=== PATIENT | female | born 1960 | race African-American/Black ===

== ENCOUNTER → 2017-01-26 | Outpatient (CLI) | payer OTHER | LOC: FIMAGING 15:59 | DX: Z12.31 Encounter for screening mammogram for malignant neoplasm of breast (principal) | CPT/HCPCS: G0202 ==

== ENCOUNTER → 2017-02-04 | Outpatient (CLI) | payer OTHER | LOC: FIMAGING 13:30 | PROVIDERS: ATTEND Family Medicine | DX: Z12.39 Encounter for other screening for malignant neoplasm of breast (principal); N63 Unspecified lump in breast ==

== ENCOUNTER → 2017-11-04 | Outpatient (CLI) | payer OTHER | LOC: FIMAGING 13:43 | PROVIDERS: ATTEND Obstetrics & Gynecology Gynecology | DX: R92.8 Other abnormal and inconclusive findings on diagnostic imaging of breast (principal) | CPT/HCPCS: G0206 ==

== ENCOUNTER 2018-01-28 11:54 | Observation (INO) | payer OTHER ==
[2018-01-28] MEDS ORDERED: ONDANSETRON 4 MG/2 ML VIAL IVP ONE (12:17)
[2018-01-28] MEDS ORDERED: HYDROmorphONE/DILAUDID 1 MG/ML INJ IVP PRN (12:17)
[2018-01-28] MEDS ORDERED: HYDROmorphONE/DILAUDID 2 MG/ML INJ ONE (12:39)
[2018-01-28] MEDS ORDERED: HYDROmorphONE/DILAUDID 2 MG/ML INJ IVP PRN ×3 (12:40→17:19)
[2018-01-28 12:44] LABS: PLATELET COUNT 370 10^3/uL (150-400)
--- NOTE | 2018-01-28 12:55 | EDPHY ---
H & P Time Seen by Provider: 01/28/18 12:17 HPI/ROS: CHIEF COMPLAINT: Severe left leg pain HISTORY OF PRESENT ILLNESS: 57-year-old female with prior lumbar diskectomy presents with severe left leg pain. 2 weeks ago, she was moving a sewing machine and had acute onset of low back pain. She saw her physician and was prescribed anti-inflammatories. However the back pain then changed to a shooting pain down her left leg. Associated with difficulty ambulating. She saw her physician again and was placed on prednisone. However, the left lower leg pain is now severe and she is needing to use a walker to ambulate. Associated with numbness in the left foot. She saw Dr. Cedric Coates in the office just prior to arrival and was sent here for pain control and for MRI of the lumbar spine. REVIEW OF SYSTEMS: Constitutional: No fever, no chills Eyes: No visual changes ENT: No sore throat Respiratory: No cough, no shortness of breath Cardiac: No chest pain Gastrointestinal: No nausea, no vomiting, no abdominal pain Genitourinary: No hematuria, no dysuria Musculoskeletal: No leg swelling Skin: No rash Neurological: No headache, no weakness Psychiatric: No depression Past Medical/Surgical History: Lumbar diskectomy Social History: Smoking Status: Never smoked Physical Exam: General Appearance: Alert, pleasant, appears comfortable lying on her right side, seen after IV Dilaudid Eyes: Pupils equal and round, no conjunctival pallor ENT, Mouth: Mucous membranes moist Neck: Normal inspection Respiratory: Lungs are clear to auscultation Cardiovascular: Regular rate and rhythm Gastrointestinal: Abdomen is soft and nontender Neurological: A&O, motor 5-/5 1st left toe dorsiflexion, otherwise 5/5, sensory intact to light touch, gait not assessed Skin: Warm and dry Extremities: Normal inspection Psychiatric: Mood and affect normal Constitutional: Initial Vital Signs Temperature (C) 36.9 C 01/28/18 11:59 Heart Rate 90 01/28/18 11:59 Respiratory Rate 17 01/28/18 11:59 Blood Pressure 172/124 H 01/28/18 11:59 O2 Sat (%) 94 01/28/18 11:59 O2 Delivery Mode Room Air Allergies/Adverse Reactions: No Known Allergies Allergy (Unverified 01/28/18 11:57) Home Medications: Medication Instructions Recorded Budesonide/Formoterol 80/4.5 1 puffs IH DAILY 01/28/18 [Symbicort 80-4.5 Mcg Inhaler] Chlorthalidone [Chlorthalidone 25 12.5 mg PO DAILY 01/28/18 mg (*)] Diltiazem HCl [Diltiazem 24Hr Cd] 180 mg PO DAILY 01/28/18 Gabapentin [Neurontin 300 MG (*)] 300 mg PO BID 01/28/18 Montelukast Sodium [Singulair 10 10 mg PO DAILY 01/28/18 mg (*)] predniSONE 20 mg PO AD 01/28/18 Methocarbamol [Robaxin 750 mg (*)] 750 mg PO QID PRN #60 tab 01/29/18 oxyCODONE IR [Oxycodone Ir (*)] 5 - 10 mg PO Q4HRS PRN #60 tab 01/29/18 Medical Decision Making - Diagnostics Imaging Results: MRI: L4-5 disc protrusion with compression of the nerve root of L5, DJD ED Course/Re-evaluation: This patient presents with severe lumbar radiculopathy and evidence of neuro compromise with LLE weakness. Dilaudid 0.5 mg IV and Zofran 4 mg IV given. Feels better after IV medications. MRI of the lumbar spine ordered. MRI reveals disc herniation. Dr. Coates consulted after MRI, saw the pt in the ED, plan to take pt to OR this afternoon. Differential Diagnosis: Differential diagnosis for back pain includes muscular pain, herniated disc, epidural abscess, discitis, spine fracture, intra-abdominal causes and urinary tract infection. - Data Points Laboratory Results: Laboratory Results 01/28/18 12:30 01/28/18 12:30 Medications Given: Discontinued Medications Acetaminophen (Tylenol) 1,000 mg PO Q8HRS [facility] Stop: 07/27/18 21:59 Last Admin: 01/29/18 06:01 Dose: 1,000 mg Bacitracin (Bacitracin Ointment Tube) Confirm Administered Dose 14.2 perico TP .STK -MED ONE Stop: 01/28/18 14:58 Last Admin: 01/28/18 16:13 Dose: Not Given Bacitracin (Bacitracin Syringe) Confirm Administered Dose 100,000 units IRR .STK -MED ONE Stop: 01/28/18 15:00 Last Admin: 01/28/18 16:11 Dose: 100,000 units Budesonide/Formoterol Fumarate (Symbicort 80-4.5 Mcg Inhaler) 1 puffs IH DAILY [facility] Stop: 07/28/18 08:59 Last Admin: 01/29/18 08:57 Dose: Not Given Bupivacaine HCl (Sensorcaine 0.25% Sdv) Confirm Administered Dose 60 ml .ROUTE .STK-MED ONE Stop: 01/28/18 14:59 Last Admin: 01/28/18 16:09 Dose: 20 ml Chlorhexidine Gluconate (Hibiclens) Confirm Administered Dose 1 btl TP .STK-MED ONE Stop: 01/28/18 14:59 Last Admin: 01/28/18 16:12 Dose: 1 btl Chlorthalidone (Chlorthalidone) 12.5 mg PO DAILY [facility] Stop: 07/28/18 08:59 Last Admin: 01/29/18 10:15 Dose: 12.5 mg Diltiazem HCl (Cardizem Er Q24hr) 180 mg PO DAILY [facility] Stop: 07/28/18 08:59 Last Admin: 01/29/18 10:16 Dose: 180 mg Epinephrine HCl (Epinephrine) Confirm Administered Dose 1 mg .ROUTE .STK-MED ONE Stop: 01/28/18 15:00 Last Admin: 01/28/18 16:10 Dose: 1 mg Famotidine (Pepcid) 20 mg PO BID [facility] Stop: 07/27/18 20:59 Last Admin: 01/29/18 10:16 Dose: 20 mg Gabapentin (Neurontin) 300 mg PO BID [facility] Stop: 07/27/18 20:59 Last Admin: 01/29/18 10:16 Dose: 300 mg Hydromorphone HCl (Dilaudid) 0.5 mg IVP Q2HRS PRN PRN Reason: Pain, Severe Unable to Take PO Last Admin: 01/28/18 12:43 Dose: 0.5 mg Cefazolin Sodium (Cefazolin Syringe) 2 gm in 20 mls @ 200 mls/hr IVP ONCALL ONE PRN Reason: Protocol Stop: 01/28/18 14:53 Last Admin: 01/28/18 15:40 Dose: 20 mls Lactated Ringer's (Lr) 1,000 mls @ 0 mls/hr IV ONCE ONE PRN Reason: Per Protocol Stop: 01/28/18 15:00 Last Admin: 01/28/18 18:40 Dose: Not Given Cefazolin Sodium (Cefazolin Syringe) 2 gm in 20 mls @ 200 mls/hr IVP Q8H NELI Stop: 01/29/18 08:05 Last Admin: 01/29/18 07:58 Dose: 20 mls Methocarbamol (Robaxin) 750 mg PO QID PRN PRN Reason: Spasms Stop: 07/27/18 17:05 Last Admin: 01/29/18 08:05 Dose: 750 mg Midazolam HCl (Versed) 2 mg IVP ONCALL ONE Stop: 01/28/18 15:00 Last Admin: 01/28/18 15:17 Dose: 2 mg Montelukast Sodium (Singulair) 10 mg PO DAILY [facility] Stop: 07/28/18 08:59 Last Admin: 01/29/18 10:15 Dose: 10 mg Ondansetron HCl (Zofran) 4 mg IVP EDNOW ONE Stop: 01/28/18 12:18 Last Admin: 01/28/18 12:41 Dose: 4 mg Oxycodone HCl (Oxycodone Ir) 5 - 10 mg PO Q4HRS PRN PRN Reason: Pain, Severe Able to Take PO Stop: 02/07/18 17:05 Last Admin: 01/29/18 12:23 Dose: 5 mg Prednisone (Prednisone) 20 mg PO AD NELI Stop: 07/27/18 20:59 Last Admin: 01/28/18 21:29 Dose: 20 mg Senna/Docusate Sodium (Senokot-S) 1 - 2 tab PO BID NELI PRN Reason: Protocol Stop: 07/27/18 20:59 Last Admin: 01/29/18 10:16 Dose: 2 tab Thrombin (Thrombin-Jmi) Confirm Administered Dose 20,000 unit TP .STK-MED ONE Stop: 01/28/18 14:59 Last Admin: 01/28/18 16:11 Dose: 20,000 unit Departure - Departure Disposition: [facility] Acute Clinical Impression: Lumbar disc herniation Condition: Fair
[2018-01-28] MEDS ORDERED: ceFAZolin 2 GM/SWFI 2 GM/20 ML SYR IVP ONE (14:48)
--- NOTE | 2018-01-28 14:52 | PDHPUP ---
History & Physical Update H&P update statement: This history and physical update is based on an assessment of the patient which was completed after admission or registration (within 24 hours), but prior to the surgery/procedure. H&P update: H&P reviewed & patient examined, no change in patient's condition since H&P completed (Patient was seen in Dr Coates's clinic today with excruciating left leg pain and left foot drop. Presents to the ER and MRI lumbar spine shows a left L4/5 disc herniation with lateral recess stenosis and L5 nerve compression. She also has foraminal stenosis with degenerative changes L5/S1, right > left. Discussed options with the patient, including injections, medications, PT, surgery. She has weakness and poorly controlled pain. Will admit and take her to surgery today for a left L4/5 hemilaminotomy with microdiscectomy and lateral recess decompression. Risks and benefits of surgery were discussed with her and her and they are in agreement to proceed. Consents have been signed and site marked.)
[2018-01-28] MEDS ORDERED: BACITRACIN ZINC 14.2 GM OINTTUBE TP ONE (14:57)
[2018-01-28] MEDS ORDERED: THROMBIN (BOVINE) 20,000 UNIT VIAL TP ONE (14:58)
[2018-01-28] MEDS ORDERED: CHLORHEXIDINE GLUC HIBICLENS 118 ML BTL TP ONE (14:58)
[2018-01-28] MEDS ORDERED: BUPIVACAINE 0.25% 30 ML SDV ONE (14:58)
[2018-01-28] MEDS ORDERED: MIDAZOLAM 2 MG/2 ML VIAL IVP ONE (14:59)
[2018-01-28] MEDS ORDERED: LR 1,000 ML IV ONE (14:59)
[2018-01-28] MEDS ORDERED: BACITRACIN 50,000 UNITS/10 ML SYR IRR ONE (14:59)
--- NOTE | 2018-01-28 14:59 | PDANEPAE ---
ANE History of Present Illness L4L5 JEREMY hemilaminectomy ANE Past Medical History - Cardiovascular History Hx Hypertension: Yes - Pulmonary History Hx Asthma/Reactive Airway Disease: Yes Hx Oxygen in Use at Home: No Hx Sleep Apnea: No - Endocrine History Hx Diabetes: No ANE Review of Systems Review of systems is: negative Review of Systems: - Exercise capacity METS (RN): 4 METS ANE Patient History - Allergies Allergies/Adverse Reactions: No Known Allergies Allergy (Unverified 01/28/18 11:57) - Home Medications Home medications: home medication list seen and reviewed Home Medications: Diltiazem 01/28/18 [Last Taken Unknown] Gabapentin 01/28/18 [Last Taken Unknown] Hydrocodone-Acetamin 5-325 mg 01/28/18 [Last Taken Unknown] Montelukast Sodium 01/28/18 [Last Taken Unknown] Prednisone 01/28/18 [Last Taken Unknown] - NPO status NPO Since - Liquids (Date): 01/28/18 NPO Since - Liquids (Time): 10:00 NPO Since - Solids (Date): 01/28/18 NPO Since - Solids (Time): 07:00 - Anes Hx Anes Hx: no prior problems - Smoking Hx Smoking Status: Never smoked - Family Anes Hx Family Anes Hx: none ANE Labs/Vital Signs - Labs Result Diagrams: 01/28/18 12:30 01/28/18 12:30 - Vital Signs Blood Pressure: 177/103 Heart Rate: 88 Respiratory Rate: 16 O2 Sat (%): 92 Height: 182.88 cm Weight: 95.254 kg ANE Physical Exam - Airway Neck exam: FROM Mallampati Score: Class 1 Mouth exam: normal dental/mouth exam - Pulmonary Pulmonary: no respiratory distress - Cardiovascular Cardiovascular: regular rate and rhythym - ASA Status ASA Status: III
[2018-01-28] MEDS ORDERED: ROCURONIUM 50 MG/5 ML VIAL ONE (15:16)
[2018-01-28] MEDS ORDERED: LIDOCAINE 2% 100 MG/5 ML SYR ONE (15:16)
[2018-01-28] MEDS ORDERED: DEXAMETHASONE 4 MG/ML VIAL ONE (15:16)
[2018-01-28] MEDS ORDERED: fentaNYL 100 MCG/2 ML INJ ONE ×2 (15:16→16:44)
[2018-01-28] MEDS ORDERED: ONDANSETRON 4 MG/2 ML VIAL ONE (15:16)
[2018-01-28] MEDS ORDERED: PROPOFOL/EMULSION 500 MG/50 ML BOTTLE IV ONE (15:17)
[2018-01-28] MEDS ORDERED: PROPOFOL 200 MG/20 ML VIAL ONE (15:17)
[2018-01-28] MEDS ORDERED: PHENYLEPHRINE HCL 100 MCG/ML SYR ONE (16:14)
[2018-01-28] MEDS ORDERED: KETOROLAC 30 MG/1 ML SDV ONE (16:48)
[2018-01-28] MEDS ORDERED: BISACODYL 10 MG SUPP PR PRN (17:06)
[2018-01-28] MEDS ORDERED: diphenhydrAMINE 25 MG CAP PO PRN (17:06)
[2018-01-28] MEDS ORDERED: ONDANSETRON DISINTEGRATING 4 MG TAB PO PRN (17:06)
[2018-01-28] MEDS ORDERED: POLYETHYLENE GLYCOL 3350 17 GM PKT PO PRN (17:06)
[2018-01-28] MEDS ORDERED: MAGNESIUM HYDROXIDE 30 ML UDCUP PO PRN (17:06)
[2018-01-28] MEDS ORDERED: METHOCARBAMOL 750 MG TAB PO PRN (17:06)
[2018-01-28] MEDS ORDERED: LACTULOSE 20 GM/30 ML UDCUP PO PRN (17:06)
[2018-01-28] MEDS ORDERED: ONDANSETRON 4 MG/2 ML VIAL IVP PRN (17:06)
--- NOTE | 2018-01-28 17:14 | POSTOPPROG ---
Post Op Note Date of Operation: 01/28/18 Surgeon: Idania Camejo Spray Drier: Jesus Camejo PA-C Anesthesiologist: Jeevan Anesthesia: GET(General Endotracheal) Pre-op Diagnosis: left L45 disc herniation, foot drop Post-op Diagnosis: same Indication: foot drop, pain Procedure: left L4/5 hemilaminotomy with microdiscectomy and lateral recess decompress Findings: Please see dictatin Inf/Abcess present in the surg proc area at time of surgery?: No Depth: Organ Space EBL: Minimal Complications: none Drains: Neo Silva Specimen(s): none PA Addendum - Addendum .: S: Pt in PACU, denies pain O: Sleepy but awakens easily, following all commands answering yes/no NAD VSS MAEx4 Motor 5/5 BUE/BLE with exception of L EHL 5-/5 +LT Incision dressed cdi A: 57 yo F s/p left L4/5 hemilaminotomy with microdiscectomy and lateral recess decompression for left foot drop P: Pain management Spine precautions TEDs, SCDs lovenox POD#1 PT/OT - encourage ambulation D/w Dr Maldonado Call NS with any questions or concerns
[2018-01-28] MEDS ORDERED: NS W/ 20 KCl/L 1,000 ML IV SCH (17:15)
[2018-01-28] MEDS ORDERED: ALBUTEROL 3 ML DEYVIAL IH PRN (17:19)
[2018-01-28] MEDS ORDERED: NALOXONE HCL 0.4 MG/ML INJ IVP PRN (17:19)
[2018-01-28] MEDS ORDERED: ACETAMINOPHEN 500 MG TAB PO PRN (17:19)
[2018-01-28] MEDS ORDERED: LABETALOL HCL 5 MG/ML 20 ML MDV IVP PRN (17:19)
[2018-01-28] MEDS ORDERED: PROMETHAZINE HCL 25 MG/ML INJ IVP PRN (17:19)
[2018-01-28] MEDS ORDERED: fentaNYL 100 MCG/2 ML INJ IVP PRN (17:19)
[2018-01-28] MEDS ORDERED: HYDROCODONE/APAP 5/325 TAB PO PRN (17:19)
[2018-01-28] MEDS ORDERED: OXYCODONE/APAP 5/325 TAB PO PRN (17:19)
[2018-01-28] MEDS ORDERED: MEPERIDINE 25 MG/ML SYR IVP PRN (17:19)
--- NOTE | 2018-01-28 17:21 | POSTANESTH ---
Post Anesthetic Evaluation Cardiovascular Status: Normal, Stable Respiratory Status: Normal, Stable, Similar to Pre-op Cond. Level of Consciousness/Mental Status: Can Participate in Eval, Moderately Sleepy Pain Control: Adequate, Prn Tx Ordered Nausea/Vomiting Control: Adequate, Prn Tx Ordered Complications Possibly Related to Anesthesia: None Noted
--- NOTE | 2018-01-28 18:55 | GOP ---
[f rep st] OPERATIVE REPORT DATE OF OPERATION: SURGEON: Navi Maldonado MD MANAGER SOUND: EULALIA Willett. COMPLICATIONS: None. ANESTHESIA: General. PREOPERATIVE DIAGNOSIS: 1. Left-sided L4-L5 lateral recess stenosis secondary to a herniated nucleus pulposus. 2. Left lower extremity radiculopathy. 3. Left foot weakness. POSTOPERATIVE DIAGNOSIS: 1. Left-sided L4-L5 lateral recess stenosis secondary to a herniated nucleus pulposus. 2. Left lower extremity radiculopathy. 3. Left foot weakness. PROCEDURE PERFORMED: 1. A left-sided L4-L5 hemilaminotomy with medial facetectomy, lateral recess decompression, microdiskectomy, nerve root decompression. 2. Use of intraoperative fluoroscopy, less than 1 hour physician time. 3. Use of neuromonitoring. 4. Use of the operative microscope. FINDINGS: per imaging SPECIMENS: None. ESTIMATED BLOOD LOSS: 20 mL. INDICATIONS: The patient is a 57-year-old woman who presented to Dr Coates's clinic today with intractable leg pain and profound foot weakness. She was referred to the emergency department where imaging studies demonstrated a left- sided L4-L5 herniated nucleus pulposus. Given her weakness on examination and intractable pain, we decided to proceed forth with immediate surgical intervention. DESCRIPTION OF PROCEDURE: The patient was brought to operating theater, and underwent general endotracheal anesthesia without complications. She had Venodynes, BHARATI hose, and the appropriate lines placed by Anesthesia. She was flipped prone onto the Jack frame and all bony prominences inspected and padded. The lower lumbar region was prepped and draped in usual sterile surgical fashion. A time-out was completed per protocol and the patient received antibiotics within 1 hour of incision. Using lateral fluoroscopy and a spinal needle, we picked our entry point to the L4-L5 level. This was marked in the midline. The incision was infiltrated with Marcaine with epinephrine. The incision was taken down with the scalpel blade, and using the monopolar, taken down through the midline through the lumbodorsal fascia to the left side of the L4-L5 interlaminar space. Deep retractors were placed to maintain our exposure. We confirmed our level using lateral fluoroscopy. The microscope was brought into field to assist with microscopic dissection and to maintain illumination and magnification. Using a combination of the bur tip on the drill bit and Kerrison punches, we completed the left-sided L4-5 hemilaminotomy with medial facetectomy. We resected the lateral recess, and completed a lateral recess decompression. We retracted the thecal sac medially, and we were able to pull out a very large free fragment of disk material which we pulled out with the angled nerve hooks. Once we felt that everything was well decompressed to manual palpation, we reached into the disk space after incising the anulus with 11-blade. We completed a further discectomy to decompress the disc space. We obtained hemostasis with bipolar and the wound was irrigated copiously with bacitracin irrigation. The wound was then closed in multiple layers using Vicryl sutures for the deep layers and Dermabond for the skin. Patient's wounds were dressed sterilely. She was then flipped supine onto the transport cart where she was awakened, extubated, and taken to the recovery room in stable condition. There were no complications and no noted changes on neuromonitoring throughout the procedure. /[id number]/MODL MTDD
[2018-01-28] MEDS ORDERED: predniSONE 20 MG TAB PO SCH (21:00)
[2018-01-28] MEDS: GABAPENTIN 300 MG CAP PO SCH (21:29)
[2018-01-28] MEDS: FAMOTIDINE 20 MG TAB PO SCH (21:29)
[2018-01-28] MEDS: ACETAMINOPHEN 500 MG TAB PO SCH (21:29)
[2018-01-28] MEDS: SENNOSIDES/DOCUSATE SODIUM TAB PO SCH (21:29)
[2018-01-28] MEDS ORDERED: ceFAZolin 2 GM/DEXTROSE 100 ML IV SCH (22:00)
[2018-01-28] MEDS: oxyCODONE IR 5 MG TAB PO PRN (22:22)
[2018-01-29] MEDS: ceFAZolin 2 GM/SWFI 2 GM/20 ML SYR IVP SCH ×2 (00:07→07:58)
[2018-01-29] MEDS: oxyCODONE IR 5 MG TAB PO PRN ×2 (04:34→12:23)
[2018-01-29 04:37] VITALS: RESP 16
[2018-01-29] MEDS: ACETAMINOPHEN 500 MG TAB PO SCH (06:01)
--- NOTE | 2018-01-29 08:41 | NEUSURGPN ---
Assessment/Plan: A: 57 yo F POD#1 s/p left L4/5 hemilaminotomy with microdiscectomy and lateral recess decompression for left foot drop P: Left foot strength is improved Pain management Spine precautions TEDs, SCDs lovenox POD#1 PT/OT - encourage ambulation D/w Dr Maldonado, pt seen by Dr Maldonado as well. Call NS with any questions or concerns DC to home today Subjective: Pt resting in bed, states she feels much better after surgery Objective: AAOx3 NAD VSS MAEx4 Motor 5/5 BLE +LT Urinary Catheter in Place: No - Physician Discussed Patient with Dr.: Erica Patient Seen by : Erica Neurosurgery Physical Exam - Vitals, I&O, Labs I and O 01/28/18 18 01/30/18 05:59 05:59 05:59 Intake Total 1300 525 Output Total 710 Balance 590 525 Weight 95.254 kg Intake: Oral (ml) 650 IV Intake (ml) 650 IV Infused (ml) 525 NS W/ 20 KCl/L 1,000 ml @ 525 100 mls/hr IV CONT NELI Rx#:[id number] Output: Urine (ml) 700 Toilet 700 Estimated Blood Loss (ml) 10 Other: Number of Voids Toilet 1 Vital Signs Temp Pulse Resp BP Pulse Ox 36.7 C 68 16 146/92 H 93 01/29/18 07:34 01/29/18 07:34 01/29/18 07:34 01/29/18 07:34 01/29/18 07:34 ICD10 Worksheet Patient Problems: Problems Problem Status Onset Foot drop, left Acute - ICD10 Problem Qualifiers (1) Foot drop, left
[2018-01-29] MEDS ORDERED: DILTIAZEM CD 180 MG CAP PO SCH (09:00)
[2018-01-29] MEDS ORDERED: CHLORTHALIDONE 25 MG TAB PO SCH (09:00)
[2018-01-29] MEDS ORDERED: MONTELUKAST SODIUM 10 MG TAB PO SCH (09:00)
[2018-01-29] MEDS ORDERED: BUDESONIDE/FORMOTEROL 80/4.5 60 PUFFS/MDI IH SCH (09:00)
[2018-01-29] MEDS: SENNOSIDES/DOCUSATE SODIUM TAB PO SCH (10:16)
[2018-01-29] MEDS: FAMOTIDINE 20 MG TAB PO SCH (10:16)
[2018-01-29] MEDS: GABAPENTIN 300 MG CAP PO SCH (10:16)
--- NOTE | 2018-01-29 11:06 | ASMTCMCOM ---
CM Note CM Note Notes: Reviewed chart and met w/pt and . Pt will dc home w/ today and follow up with surgeon and out pt therapy. No CM needs. Date Signed: 01/29/2018 11:05 AM Electronically Signed By:Delmis Limon RN
[2018-01-29 12:05] VITALS: BP 129/77; PULSE 80; TEMP 97.5; O2SAT 89
[2018-01-29] MEDS ORDERED: ENOXAPARIN 40 MG/0.4 ML SYR SC SCH (16:00)
== END 2018-01-29 14:15 | disposition home or self-care (01) ==
LOC: FSGY 14:37 → INTOOBSV 14:38 → F3N 18:26
PROVIDERS: ADMIT Neurological Surgery; ATTEND Neurological Surgery
PROC: 0ST20ZZ Resection of Lumbar Vertebral Disc, Open Approach (ICD-10-PCS; principal; 2018-01-28 15:30)
PROC: BR131ZZ Fluoroscopy of Lumbar Disc(s) using Low Osmolar Contrast (ICD-10-PCS; principal; 2018-01-28 15:30)
PROC: 8E0WXBZ Computer Assisted Procedure of Trunk Region (ICD-10-PCS; principal; 2018-01-28 15:30)
DX: S33.141A Dislocation of L4/L5 lumbar vertebra, initial encounter (principal); X50.0XXA Overexertion from strenuous movement or load, initial encounter; Y93.D2 Activity, sewing; M54.16 Radiculopathy, lumbar region; I10 Essential (primary) hypertension; J45.909 Unspecified asthma, uncomplicated
CPT/HCPCS: 63030; 72148; 76001; 96374; 96375; 97161; 97166; 97535; 99285; G0378; J0171; J0690; J1100; J1170; J1885; J2001; J2250; J2370; J2405; J2704; J3010; J7512